=== PATIENT | female | born 1945 | race Caucasian/White ===

== ENCOUNTER 2019-12-20 19:03 | Emergency (ER) | payer MEDICARE ==
[2019-12-20 20:04] LABS: BASOPHILS # (AUTO) 0.1 10^3/uL (0.0-0.1); BASOPHILS % (AUTO) 0.6 %; EOSINOPHILS # (AUTO) 0.2 10^3/uL (0.0-0.7); EOSINOPHILS % (AUTO) 2.1 %; HGB - HEMOGLOBIN 10.9 g/dL (12.0-16.0); LYMPHOCYTES # (AUTO) 1.7 10^3/uL (1.5-3.5); LYMPHOCYTES % (AUTO) 16.1 %; MEAN CORPUSCULAR HEMOGLOBIN 28.9 pg (27.0-31.0); MEAN CORPUSCULAR HGB CONC 31.1 g/dL (32.0-36.0); MEAN CORPUSCULAR VOLUME 92.8 fL (81.0-99.0); MEAN PLATELET VOLUME 11.3 fL (7.9-10.8); MONOCYTES # (AUTO) 0.9 10^3/uL (0.0-1.0); MONOCYTES % (AUTO) 8.7 %; NEUTROPHILS # (AUTO) 7.5 10^3/uL (1.5-6.6); NEUTROPHILS % (AUTO) 71.6 %; PLT - PLATELET COUNT 271 10^3/uL (130-450); RED BLOOD COUNT 3.77 10^6/uL (4.20-5.40); RED CELL DISTRIBUTION WIDTH 15.3 % (12.0-15.0); WHITE BLOOD COUNT 10.4 x10^3/uL (4.8-10.8)
[2019-12-20 20:16] LABS: ALBUMIN 3.4 g/dL (3.2-5.5); ALBUMIN/GLOBULIN RATIO 1.2 (1.0-2.2); CALCIUM 8.6 mg/dL (8.5-10.3); CREATININE 0.7 mg/dL (0.4-1.0); MAGNESIUM 1.8 mg/dL (1.7-2.8); TOTAL PROTEIN 6.3 g/dL (6.7-8.2)
--- NOTE | 2019-12-20 21:23 | ED Physician Documentation ---
History of Present Illness - Stated complaint Stated Complaint: AFIB - Chief complaint Chief Complaint: Cardiac - History obtained from History obtained from: Patient (the pt comes in today with CC of feeling dizzy. She called her PCP who advised her to come to the ED. On December 04 the pt went into new onset Atrial fibrillation, sh ewas seen at [facility] in [place]. She was discharged home in sinus rhythm. two days later she went back into atrial fibrillation and retunred to [facility] ED. She was admitted for observation for several days, a week total she believes. During this time she was started on Amiodarone With a loading dose. She was discharged home with a amiodarone 200 mg twice daily, and 5 mg Coumadin daily. Since her discharge home 8 days ago she has been doing fine without any lightheaded dizziness or palpitation fee lings. Of note while she was hospitalized she developed an infection into the right knee which she had surgical debridement of and a wound VAC placed. She has been visited by home health nurse to change his wound VAC dressing daily. Last dressing change wound VAC change was today. The patient has been afebrile without nausea vomiting headache or diarrhea since discharge. She is awaiting appointment for follow-up with her fiber technician, and her primary care physician. She is diabetic, and states her blood sugars have remained normal. She has no other concerns or complaints today.) Review of Systems Constitutional: denies: Fever, Chills, Fatigue Eyes: reports: Reviewed and negative Ears: reports: Reviewed and negative Nose: reports: Reviewed and negative Throat: reports: Reviewed and negative. denies: Sore throat Cardiac: reports: Palpitations Respiratory: denies: Dyspnea, Cough, Wheezing GI: denies: Nausea, Vomiting, Diarrhea : denies: Dysuria, Frequency, Hesitancy Musculoskeletal: reports: Other (Right knee with wound VAC in place. Right lower extremity edema secondary to surgical site on right knee.) PD PAST MEDICAL HISTORY - Past Medical History Cardiovascular: Atrial fibrillation Endocrine/Autoimmune: Type 2 diabetes - Past Surgical History Other past surgical history: Surgical debridement of a right knee hematoma, subsequent wound VAC placed. - Allergies Allergies/Adverse Reactions: Allergies Allergy/AdvReac Type Severity Reaction Status Date / Time adhesive tape AdvReac Rash Verified 12/20/19 19:09 PD ED PE NORMAL - General General: Alert and oriented X 3, No acute distress, Well developed/nourished - HEENT HEENT: Atraumatic, PERRL, EOMI, Ears normal, Moist mucous membranes - Neck Neck: No adenopathy - Cardiac Cardiac: RRR - Respiratory Respiratory: No respiratory distress, Clear bilaterally - Abdomen Abdomen: Soft, Non tender, Non distended - Derm Derm: Warm and dry - Extremities Extremities: Other (Right knee with a wound VAC in place; right lower extremity edema, some slight erythema around the knee and. Bruising to the distal thigh, secondary to surgical procedure on the right knee.) PD ED PE EXPANDED - Extremities Extremities: Right knee (Wound VAC in place secondary to surgical debridement of the wound.) Results - Vitals Vitals: Vital Signs - 24 hr 12/20/19 12/20/19 19:09 20:39 Temperature 36.5 C Heart Rate 71 67 Respiratory 16 12 Rate Blood Pressure 164/70 H 149/81 H O2 Saturation 96 99 Oxygen O2 Source Room air - Labs Labs: Laboratory Tests 12/20/19 12/20/19 19:47 19:47 WBC 10.4 RBC 3.77 L Hgb 10.9 L Hct 35.0 L MCV 92.8 MCH 28.9 MCHC 31.1 L RDW 15.3 H Plt Count 271 MPV 11.3 H Neut # (Auto) 7.5 H Lymph # (Auto) 1.7 [place] # (Auto) 0.9 Eos # (Auto) 0.2 Baso # (Auto) 0.1 Absolute Nucleated RBC 0.00 Nucleated RBC % 0.0 Sodium 138 Potassium 3.4 L Chloride 102 Carbon Dioxide 27 Anion Gap 9.0 BUN 13 Creatinine 0.7 Estimated GFR (MDRD) 82 L Glucose 121 H Calcium 8.6 Magnesium 1.8 Total Bilirubin 1.0 AST 26 ALT 29 Alkaline Phosphatase 67 Total Protein 6.3 L Albumin 3.4 Globulin 2.9 Albumin/Globulin Ratio 1.2 Lipase 46 PD MEDICAL DECISION MAKING - ED course Complexity details: reviewed results, re-evaluated patient, considered differential (Atrial fibrillation, elevated blood sugar, infection to the leg/cellulitis.), d/w patient, d/w family Departure - Departure Disposition: 01 Home, Self Care Clinical Impression: Atrial fibrillation Qualifiers: Atrial fibrillation type: unspecified Qualified Code(s): I48.91 - Unspecified atrial fibrillation Condition: Good Instructions: ED Afib Comments: Your visit tonayush in ED shows that your heart is in a normal sinus rhythm, not in atrial fibrillation. Your amiodarone seems to be working. Continue to take amiodarone as directed by your fiber technician twice daily. Call to get a follow- up appointment with your fiber technician as soon as you can possible. Also call your primary care physician for follow-up appointment for the right knee surgical site. Should he develop fevers chills nausea vomiting or headache, and your right leg becomes more red or warm to the touch follow-up with your primary care physician, or return to the emergency department for further evaluation.
[2019-12-20 22:05] VITALS: BP 155/86
== END 2019-12-20 22:05 | disposition home or self-care (01) ==
LOC: ED 19:03
DX: I48.91 Unspecified atrial fibrillation (principal); R42 Dizziness and giddiness; E11.9 Type 2 diabetes mellitus without complications
CPT/HCPCS: 36415; 80053; 83690; 83735; 85025; 93005; 99283; 99284